=== PATIENT | female | born 1995 | race Caucasian/White ===

== ENCOUNTER 2016-07-02 14:26 | Emergency (ER) | payer BC ==
[2016-07-02 15:21] VITALS: BP 121/94
--- NOTE | 2016-07-02 16:07 | UC ---
Throat Pain/Nasal Cj HPI - HPI Summary HPI Summary: 21 yo female with sore throat x 1-2 days recent exposure to strep no f/c some myalgias no n/v/d - History of Current Complaint Chief Complaint: UCRespiratory Stated Complaint: THROAT Time Seen by Provider: 07/02/16 15:59 Hx Obtained From: Patient Hx Last Menstrual Period: Early May 2016 Onset/Duration: Sudden Onset, Lasting Days Severity: Mild Pain Intensity: 3 Pain Scale Used: 0-10 Numeric Cough: None Associated Signs & Symptoms: Positive: Negative - Allergies/Home Medications Allergies/Adverse Reactions: Allergies Allergy/AdvReac Type Severity Reaction Status Date / Time Amoxicillin Allergy Rash Verified 01/28/13 12:42 Erythromycin Allergy Unknown Verified 07/02/16 14:57 Reaction Details Penicillins Allergy Rash Verified 01/28/13 12:42 erythromycin Allergy Stomach Uncoded 07/02/16 14:57 Cramps Home Medications: Home Medications Acetaminophen TAB* [Tylenol TAB*] 325 mg PO Q4H PRN 07/02/16 [History Confirmed 07/02/16] PMH/Surg Hx/FS Hx/Imm Hx Previously Healthy: Yes Endocrine History Of: Denies: Diabetes, Thyroid Disease Cardiovascular History Of: Denies: Cardiac Disorders Respiratory History Of: Denies: Asthma - Surgical History Surgical History: Yes Surgery Procedure, Year, and Place: wisdom teeth - Family History Known Family History: Positive: Hypertension - Social History Alcohol Use: Occasionally Substance Use Type: Excessive Caffeine Smoking Status (MU): Light Every Day Tobacco Smoker Review of Systems Constitutional: Negative Skin: Negative Eyes: Negative ENT: Sore Throat Respiratory: Negative Cardiovascular: Negative Gastrointestinal: Negative Genitourinary: Negative Motor: Negative Neurovascular: Negative Musculoskeletal: Negative Neurological: Negative Psychological: Negative All Other Systems Reviewed And Are Negative: Yes Physical Exam Triage Information Reviewed: Yes Appearance: Well-Appearing, No Pain Distress, Well-Nourished Vital Signs: Initial Vital Signs Temp 96.6 F 07/02/16 14:49 Pulse 61 07/02/16 14:49 Resp 18 07/02/16 14:49 BP 121/94 07/02/16 14:49 Pulse Ox 100 07/02/16 14:49 Vital Signs Reviewed: Yes Eyes: Positive: Conjunctiva Clear ENT: Positive: Hearing grossly normal, Pharyngeal erythema, TMs normal. Negative: Nasal congestion, Nasal drainage, Tonsillar swelling, Tonsillar exudate, Trismus, Muffled/hoarse voice Neck: Positive: Supple, Nontender, Enlarged Nodes @ - ant cervical Respiratory: Positive: Lungs clear, Normal breath sounds, No respiratory distress Cardiovascular: Positive: RRR, No Murmur Musculoskeletal: Positive: ROM Intact, No Edema Neurological: Positive: Alert Psychological Exam: Normal Skin Exam: Normal Throat Pain/Nasal Course/Dx - Differential Dx/Diagnosis Provider Diagnoses: acute pharygitis Discharge - Discharge Plan Condition: Stable Disposition: HOME Prescriptions: Azithromycin TAB* [Zithromax TAB*] 250 mg PO DAILY #6 tab Patient Education Materials: Pharyngitis (ED) Referrals: Arianna Carvajal, [employer] [Primary Care Provider] - 4 Days (if not better)
== END 2016-07-02 16:13 | disposition home or self-care (01) ==
LOC: UCCORT 14:26
DX: J02.9 Acute pharyngitis, unspecified (principal); F17.210 Nicotine dependence, cigarettes, uncomplicated; Z88.0 Allergy status to penicillin; Z88.1 Allergy status to other antibiotic agents
CPT/HCPCS: 81025; 87651; 99202; G0463

== ENCOUNTER 2016-08-20 11:36 | Emergency (ER) | payer BC ==
[2016-08-20] MEDS ORDERED: Ibuprofen TAB* 600 MG PO ONE (11:53)
--- NOTE | 2016-08-20 12:02 | UC ---
Throat Pain/Nasal Cj HPI - HPI Summary HPI Summary: Had mild low back pain for several days, then abrupt onset of fever, ST, chills , and body aches last night. Reports strep every 3 months or so, and this is what it feels like to her. Took ibuprofen last night and at 5am with some effect. Denies rash or vomiting. - History of Current Complaint Stated Complaint: BODY ACHES,SORE THROAT,FEVER Time Seen by Provider: 08/20/16 11:47 Hx Obtained From: Patient Hx Last Menstrual Period: 12/28/12 ?: No Onset/Duration: Gradual Onset, Lasting Days Severity: Mild Cough: None Associated Signs & Symptoms: Positive: Fever. Negative: Sinus Discomfort, Nasal Discharge - Allergies/Home Medications Allergies/Adverse Reactions: Allergies Allergy/AdvReac Type Severity Reaction Status Date / Time Amoxicillin Allergy Rash Verified 01/28/13 12:42 Erythromycin Allergy Unknown Verified 07/02/16 14:57 Reaction Details Penicillins Allergy Rash Verified 01/28/13 12:42 erythromycin Allergy Stomach Uncoded 07/02/16 14:57 Cramps PMH/Surg Hx/FS Hx/Imm Hx Endocrine History Of: Denies: Diabetes, Thyroid Disease Cardiovascular History Of: Denies: Cardiac Disorders Respiratory History Of: Denies: Asthma - Surgical History Surgical History: None Surgery Procedure, Year, and Place: wisdom teeth - Family History Known Family History: Positive: Hypertension - Social History Occupation: Student Lives: Alone Alcohol Use: Occasionally Substance Use Type: None Smoking Status (MU): Light Every Day Tobacco Smoker Review of Systems Constitutional: Fever - subj, Chills, Fatigue Skin: Negative Eyes: Negative ENT: Sore Throat Respiratory: Negative Cardiovascular: Negative Gastrointestinal: Negative Genitourinary: Negative Motor: Negative Neurovascular: Negative Musculoskeletal: Myalgia Neurological: Negative Psychological: Negative All Other Systems Reviewed And Are Negative: Yes Physical Exam Triage Information Reviewed: Yes Appearance: Well-Appearing, Pain Distress - mild Vital Signs Reviewed: Yes Eye Exam: Normal Eyes: Positive: Conjunctiva Clear ENT: Positive: Pharyngeal erythema, TMs normal, Tonsillar swelling, Tonsillar exudate. Negative: Nasal congestion, Nasal drainage Dental Exam: Normal Neck exam: Normal Neck: Positive: Supple, Nontender, No Lymphadenopathy Respiratory Exam: Normal Respiratory: Positive: Chest non-tender, Lungs clear, Normal breath sounds, No respiratory distress, No accessory muscle use Cardiovascular: Positive: No Murmur, Tachycardia - high 90s on exam Musculoskeletal Exam: Normal Neurological Exam: Normal Neurological: Positive: Alert Psychological Exam: Normal Skin Exam: Normal Throat Pain/Nasal Course/Dx - Course Course Of Treatment: discussed strep swab versus clinical dx, explained that I would likely treat her with abx regardless. Pt would like to skip RST today, understands she will need another visit if she does not improve as expected. - Differential Dx/Diagnosis Provider Diagnoses: tonsillitis Discharge - Discharge Plan Condition: Stable Disposition: HOME Prescriptions: Clindamycin Cap(NF) [Cleocin 300 mg Cap(NF)] 300 mg PO TID #30 cap Patient Education Materials: Tonsillitis (ED) Referrals: Arianna Carvajal NP [Primary Care Provider] - Additional Instructions: If you do not have clear and marked improvement within a few days, please see your primary care provider for follow-up. You have elected to forego a strep test today because your clinical presentation is strongly suggestive. If you do not improve, or if you improve and then worsen, you will likely need further testing.
[2016-08-20 12:10] VITALS: BP 122/74
== END 2016-08-20 12:23 | disposition home or self-care (01) ==
LOC: UCCORT 11:36
DX: J03.90 Acute tonsillitis, unspecified (principal); Z88.1 Allergy status to other antibiotic agents; Z88.0 Allergy status to penicillin; F17.210 Nicotine dependence, cigarettes, uncomplicated
CPT/HCPCS: 99212; A9270-GY; G0463

== ENCOUNTER 2016-10-12 07:45 | Day surgery (SDC) | payer BC ==
[~2016-10-12 07:45] MED LIST: Dexamethasone IV* 4 MG/ML 1 ML (4 MG) IV SLOW PU ONE; Famotidine IV* 10 MG/ML 2 ML (20 mg) IV ONE
[2016-10-12 07:56] LABS: Manual Entry Verification MR; UR Preg Internal Control QC Line Present
[2016-10-12] MEDS ORDERED: Famotidine IV* 10 MG/ML 2 ML (20 mg) ONE (08:05)
[2016-10-12] MEDS ORDERED: Buffered Lidocaine 1% SYRIN* 5 ML/SYR SYRINGE ONE (08:05)
[2016-10-12] MEDS ORDERED: Dexamethasone IV* 4 MG/ML 1 ML (4 MG) ONE (08:05)
[2016-10-12] MEDS ORDERED: ROPIVACAINE 5 MG/ML 30 ML BTL (0.5%) ONE (08:13)
[2016-10-12] MEDS ORDERED: Succinylcholine* 20 MG/ML 10 ML VIAL ONE (08:16)
[2016-10-12] MEDS ORDERED: Midazolam* 1 MG/ML 2 ML VIAL (2 MG) ONE (08:16)
[2016-10-12] MEDS ORDERED: Propofol* 10 MG/ML 20 ML BTL IV PUSH ONE (08:16)
[2016-10-12] MEDS ORDERED: Lidocaine 2% PF * 5 ML VIAL ONE (08:16)
[2016-10-12] MEDS ORDERED: fentaNYL* 50 MCG/ML 2 ML VIAL (100 MCG VIAL) ONE ×2 (08:17→09:42)
[2016-10-12] MEDS ORDERED: HYDROcodone/ACETAMIN 5-325 MG* 1 TAB PO PRN (08:38)
[2016-10-12] MEDS ORDERED: PROCHLORPERAZINE INJ 5 MG/ML 2 ML VIAL IV PRN (08:38)
[2016-10-12] MEDS ORDERED: oxyCODONE/Acetamin 5/325 MG* TAB PO PRN (08:38)
[2016-10-12] MEDS ORDERED: Ondansetron INJ* 2 MG/ML VIAL ONE (09:08)
[2016-10-12] MEDS: fentaNYL* 50 MCG/ML 2 ML VIAL (100 MCG VIAL) IV PRN ×2 (09:45→09:54)
[2016-10-12] MEDS ORDERED: HYDROcodone/ACETAMIN 5-325 MG* 1 TAB ONE (09:50)
[2016-10-12 10:31] VITALS: BP 120/75
--- NOTE | 2016-10-13 01:16 | OP ---
DATE OF OPERATION: 10/12/16 - [facility] DATE OF : [birth year] SURGEON: Roberto Moore MD ANESTHESIOLOGIST: Venice Reardon MD ANESTHESIA: General endotracheal anesthesia. PRE-OP DIAGNOSIS: Chronic current tonsillitis. POST-OP DIAGNOSIS: Chronic current tonsillitis. OPERATIVE PROCEDURE: Tonsillectomy. COMPLICATIONS: None. DISPOSITION: Good. SPECIMEN: Left and right tonsils. BLOOD LOSS: Minimal. DESCRIPTION OF PROCEDURE: The patient was taken to the operating room and placed in the supine position on the operating table, general anesthesia induced , and she was orotracheally intubated and turned and draped for the surgery. Serge-Esdras mouth gag was inserted, traction was applied, and suspended from the barboza stand. The adenoid bed was palpated and there was no significant adenoid tissue. Right tonsil was grasped and manual traction applied. Using Bovie cautery, it was dissected along its capsule removing it from the underlying pharyngeal musculature. The left tonsil was grasped, manual traction applied. Again using Bovie cautery, it was dissected along its capsule removing it from the underlying pharyngeal musculature. Hemostasis was ensured in the both tonsillar fossae using the suction cautery. Orogastric tube inserted into the stomach, stomach contents suctioned. Serge-Esdras mouth gag was released and removed. The patient tolerated the procedure well. No complication. She was transferred to recovery room in stable condition. [id number]/CPS #: [id number] MTDD
== END 2016-10-12 10:49 | disposition home or self-care (01) ==
LOC: OR 07:45
PROVIDERS: ATTEND Otolaryngology
DX: J03.01 Acute recurrent streptococcal tonsillitis (principal); F17.210 Nicotine dependence, cigarettes, uncomplicated
CPT/HCPCS: 81025; 88304; J0330; J1100; J2250; J2405; J2704; J2795; J3010

== ENCOUNTER 2016-11-23 11:28 | Emergency (ER) | payer BC ==
[2016-11-23 11:54] VITALS: BP 104/58
--- NOTE | 2016-11-23 13:52 | UC ---
Complaint Female HPI - HPI Summary HPI Summary: 2 DAYS OF LOWER ABDOMINAL CRAMPING AND BURNING WITH URINATION. ALSO HAS FREQUENCY AND MILD BACK PAIN. NO FEVER OR NAUSEA. CURRENTLY ON MENSES. - History Of Current Complaint Chief Complaint: UCGU Stated Complaint: UTI SYMPTOMS Time Seen by Provider: 11/23/16 13:09 Hx Obtained From: Patient Hx Last Menstrual Period: now Onset/Duration: Gradual Onset, Lasting Days, Still Present Timing: Constant Severity Initially: Moderate Severity Currently: Moderate Pain Intensity: 7 Pain Scale Used: 0-10 Numeric Character: Burning Aggravating Factor(s): Urination Alleviating Factor(s): Nothing Associated Signs And Symptoms: Positive: Back Pain. Negative: Fever, Vaginal Discharge, Nausea, Vomiting(# Of Episodes =), Genital Swelling, Genital Blisters - Allergies/Home Medications Allergies/Adverse Reactions: Allergies Allergy/AdvReac Type Severity Reaction Status Date / Time Amoxicillin Allergy Rash Verified 11/23/16 11:53 Erythromycin Allergy Rash Verified 11/23/16 11:53 Penicillins Allergy Rash Verified 11/23/16 11:53 PMH/Surg Hx/FS Hx/Imm Hx Previously Healthy: Yes - Surgical History Surgical History: Yes Surgery Procedure, Year, and Place: wisdom teeth. Tonsil 10/10 - Family History Known Family History: Positive: Hypertension - Social History Alcohol Use: Occasionally Alcohol Amount: 10 beers q2-3 weeks Substance Use Type: Marijuana Substance Use Comment - Amount & Last Used: recreational Smoking Status (MU): Light Every Day Tobacco Smoker Amount Used/How Often: 1-2 cigs per day Length of Time of Smoking/Using Tobacco: started at age 17 Have You Smoked in the Last Year: No Review of Systems Constitutional: Negative Respiratory: Negative Cardiovascular: Negative Gastrointestinal: Abdominal Pain Genitourinary: Dysuria, Frequency All Other Systems Reviewed And Are Negative: Yes Physical Exam Triage Information Reviewed: Yes Appearance: Well-Appearing, No Pain Distress, Well-Nourished Vital Signs: Initial Vital Signs Temp 98.2 F 11/23/16 11:50 Pulse 70 11/23/16 11:50 Resp 16 11/23/16 11:50 BP 104/58 11/23/16 11:50 Pulse Ox 98 11/23/16 11:50 Vital Signs Reviewed: Yes Eyes: Positive: Conjunctiva Clear ENT: Positive: Hearing grossly normal Neck: Positive: Supple Respiratory: Positive: No respiratory distress, No accessory muscle use Cardiovascular: Positive: Pulses Normal Abdomen Description: Positive: Soft, Other: - SUPRAPUBIC TTP. Negative: CVA Tenderness (R), CVA Tenderness (L), Distended, Guarding Musculoskeletal: Positive: No Edema Neurological: Positive: Alert Psychological: Positive: Age Appropriate Behavior Skin: Negative: rashes Diagnostics - Laboratory Diagnostic Studies Completed/Ordered: URINE DIP SP. GR. 1.020, 1+LEUKS, 2+ BLOOD (ON MENSES), 1+ PROTEIN Complaint Female Dx - Differential Dx/Diagnosis Provider Diagnoses: UTI Discharge - Discharge Plan Condition: Stable Disposition: HOME Prescriptions: Phenazopyridine TAB* [Pyridium TAB*] 200 mg PO TID #6 tab Sulfamethox/Trimethoprim DS* [Bactrim DS 800/160 TAB*] 1 tab PO BID #6 tab Patient Education Materials: Urinary Tract Infection in Women (ED) Referrals: Arianna Carvajal, [employer] [Primary Care Provider] - If Needed
== END 2016-11-23 13:47 | disposition home or self-care (01) ==
LOC: UCCORT 11:28
DX: N39.0 Urinary tract infection, site not specified (principal); F17.200 Nicotine dependence, unspecified, uncomplicated
CPT/HCPCS: 81003; 87077; 87086; 99212; G0463

== ENCOUNTER 2018-04-23 10:15 | Emergency (ER) | payer BC ==
[2018-04-23 10:58] VITALS: BP 111/64
--- NOTE | 2018-04-23 11:19 | UC ---
Abdominal Pain Female HPI - HPI Summary HPI Summary: Pt presents with 6 days of vaginal discharge with odor, no itching, mild low back pain, mild lower abd cramping x 2 days and dysuria x 2 days. No hematuria, frequency or urgency. Pt removed Nueva ring approx 1 week ago - requesting test. No nausea, vomiting. No fever, chills. h/o BV- states feels similar. No h.o STD. No medications taken or treatment Pt's medication reviewed this visit - History of Current Complaint Chief Complaint: UCGU Stated Complaint: URINARY Time Seen by Provider: 04/23/18 10:59 Hx Obtained From: Patient Hx Last Menstrual Period: 03/24/18 Pain Intensity: 5 Allergies/Adverse Reactions: Allergies Allergy/AdvReac Type Severity Reaction Status Date / Time amoxicillin Allergy Unknown Rash Verified 04/23/18 10:50 erythromycin base Allergy Unknown Rash Verified 04/23/18 10:50 Penicillins Allergy Unknown Rash Verified 04/23/18 10:50 PMH/Surg Hx/FS Hx/Imm Hx Previously Healthy: Yes - Surgical History Surgical History: Yes Surgery Procedure, Year, and Place: wisdom teeth. Tonsil 10/10 - Family History Known Family History: Positive: Hypertension - Social History Alcohol Use: Rare Alcohol Amount: 10 beers q2-3 weeks Substance Use Type: Marijuana Substance Use Comment - Amount & Last Used: OCCASIONAL Smoking Status (MU): Former Smoker Amount Used/How Often: 1-2 cigs per day Length of Time of Smoking/Using Tobacco: started at age 17 Have You Smoked in the Last Year: No When Did the Patient Quit Smoking/Using Tobacco: 07/14 Review of Systems All Other Systems Reviewed And Are Negative: Yes Gastrointestinal: Positive: Abdominal Pain - cramping Genitourinary: Positive: Dysuria, Vaginal/Penile Discharge Physical Exam - Summary Physical Exam Summary: Vital Signs Reviewed: Yes A+Ox3, no distress Eyes: Conjunctiva Clear, CARLOS. EOM intact and full ENT: Hearing grossly normal TM x 2 clear, mmoist, uvula midline, no exudate, no erythema Neck: Positive: Supple Respiratory: Positive: No respiratory distress, No accessory muscle use + CTA throughout no w/r Cardiovascular: RRR nl s1, s2 no m/r CBT <2 sec abd soft + BS nt/nd no guarding, no distension, no CVA : RN Im chaparone: no lesions, no odor, thin white d/c in vault. no bleeding no CMT - endocervical samples taken Musculoskeletal Exam: CARVER x 4 without difficulty Strength Intact, ROM Intact Neurological: Positive: Alert, + sensation throughout Psychological: Positive: Normal Response To Family Skin: Positive: no rash, no ecchymosis Triage Information Reviewed: Yes Vital Signs: Initial Vital Signs Temp 98.3 F 04/23/18 10:51 Pulse 64 04/23/18 10:51 Resp 14 04/23/18 10:51 BP 111/64 04/23/18 10:51 Pulse Ox 100 04/23/18 10:51 Abd Pain Female Course/Dx - Course Course Of Treatment: Pt presents with vaginal discharge, odor and dysuria. Pt also reports abd cramping and back pain. VSS. exam significant for white, thin vaginal discharge. abd exam non concerning. urinalysis and test reviewd. Will treat for BV given exam. pt aware cx pending. recommended alternate BCP since removed ring. pt comfortable and in agreement with plan - Differential Dx/Diagnosis Provider Diagnosis: Bacterial vaginosis, Vaginitis Discharge - Sign-Out/Discharge Documenting (check all that apply): Patient Departure All imaging exams completed and their final reports reviewed: No Studies - Discharge Plan Condition: Stable Disposition: HOME Prescriptions: metroNIDAZOLE [Flagyl] 500 mg PO BID #14 tablet Patient Education Materials: Bacterial Vaginosis (ED) Referrals: Arianna Carvajal NP [Primary Care Provider] - Additional Instructions: You are being treated for bacterial vaginosis - this is a vaginal infection that is NOT sexually transmitted. Take medication as prescribed. Do NOT drink alcohol for 48 hours before starting and 48 hours following completion of this medication Your samples have been sent for additional testing - if you need a change in treatment, you will be contacted by a care fast food team member. this may take 2-3 days It is recommended you contact your methodologist to discuss control option Contact your doctor or return with questions or concerns - Billing Disposition and Condition Condition: STABLE Disposition: Home
== END 2018-04-23 11:48 | disposition home or self-care (01) ==
LOC: UCCORT 10:15
DX: N76.0 Acute vaginitis (principal); Z88.1 Allergy status to other antibiotic agents; Z88.0 Allergy status to penicillin; Z87.891 Personal history of nicotine dependence
CPT/HCPCS: 81003; 84702; 87086; 87480; 87491; 87510; 87591; 99212; G0463

== ENCOUNTER 2018-05-01 08:21 | Emergency (ER) | payer BC ==
[2018-05-01] MEDS ORDERED: NS 0.9% 1000 ML* 1,000 ML IV ONE (09:01)
[2018-05-01] MEDS ORDERED: Ondansetron INJ* 2 MG/ML VIAL IV ONE (09:01)
--- NOTE | 2018-05-01 09:34 | ED ---
Complex/Multi-Sys Presentation - HPI Summary HPI Summary: 23-year-old female presents with multiple symptoms for the past couple days. She admits to nausea vomiting diarrhea. She also admits to abdominal. She states feels flushed. She states feels anxious. She is occasional shortness of breath. No chest pain. No cough. No sore throat. She denies any urinary symptoms. She denies any flank pain. She states she recently is being treated for BV. She denies any abnormal vaginal discharge. She states this after she started Flagyl started about symptoms. She also been started on hydroxyzine she is help with everything. She admits to loss of appetite. she states feels dehydrated and weak. she denies any fever. - History Of Current Complaint Chief Complaint: EDGeneral Time Seen by Provider: 05/01/18 08:33 - Allergies/Home Medications Allergies/Adverse Reactions: Allergies Allergy/AdvReac Type Severity Reaction Status Date / Time amoxicillin Allergy Unknown Rash Verified 05/01/18 08:30 erythromycin base Allergy Unknown Rash Verified 05/01/18 08:30 Penicillins Allergy Unknown Rash Verified 05/01/18 08:30 PMH/Surg Hx/FS Hx/Imm Hx Endocrine/Hematology History: Denies: Hx Diabetes, Hx Thyroid Disease Cardiovascular History: Denies: Other Cardiovascular Problems/Disorders Respiratory History: Denies: Hx Asthma GI History: Reports: Hx Irritable Bowel Denies: Other GI Disorders Sensory History: Reports: Hx Contacts or Glasses - glasses Denies: Hx Hearing Aid Opthamlomology History: Reports: Hx Contacts or Glasses - glasses Psychiatric History: Reports: Hx Anxiety - no meds, Hx Depression - no meds - Surgical History Surgery Procedure, Year, and Place: wisdom teeth. Tonsil 10/10 Hx Anesthesia Reactions: Yes - woke up during colonoscopy and wisdom teeth, very combative Infectious Disease History: No Infectious Disease History: Denies: Traveled Outside the [place] in Last 30 Days - Family History Known Family History: Positive: Hypertension - Social History Alcohol Use: Rare Alcohol Amount: 10 beers q2-3 weeks Substance Use Type: Reports: Marijuana Substance Use Comment - Amount & Last Used: OCCASIONAL Smoking Status (MU): Former Smoker Amount Used/How Often: 1-2 cigs per day Length of Time of Smoking/Using Tobacco: started at age 17 Have You Smoked in the Last Year: No Review of Systems Negative: Fever Negative: Cough Positive: Abdominal Pain, Vomiting, Diarrhea, Nausea Positive: Myalgia Positive: Weakness All Other Systems Reviewed And Are Negative: Yes Physical Exam Triage Information Reviewed: Yes Vital Signs On Initial Exam: Initial Vitals Temp Pulse Resp BP Pulse Ox 98.9 F 72 19 140/75 97 05/01/18 08:24 18 08:24 18 08:24 05/01/18 08:24 05/01/18 08:24 Vital Signs Reviewed: Yes Appearance: Positive: Well-Appearing Skin: Positive: Warm, Dry Head/Face: Positive: Normal Head/Face Inspection Eyes: Positive: Normal, Conjunctiva Clear ENT: Positive: Pharynx normal Respiratory/Lung Sounds: Positive: Clear to Auscultation, Breath Sounds Present Cardiovascular: Positive: Normal, RRR Musculoskeletal: Positive: Normal Neurological: Positive: Normal Psychiatric: Positive: Normal Diagnostics - Vital Signs Vital Signs Temp Pulse Resp BP Pulse Ox 05/01/18 08:45 66 98 05/01/18 08:24 98.9 F 72 19 140/75 97 - Laboratory Result Diagrams: 05/01/18 09:24 05/01/18 09:24 Lab Statement: Any lab studies that have been ordered have been reviewed, and results considered in the medical decision making process. - EKG No standard instances Cardiac Rate: NL EKG Rhythm: Sinus Rhythm Summary of EKG Findings: sinus arrhythmia Complex Multi-Symp Course/Dx Course Of Treatment: 23-year-old female presents with multiple symptoms for the past couple days. She admits to nausea vomiting diarrhea. She also admits to abdominal. She states feels flushed. She states feels anxious. She is occasional shortness of breath. No chest pain. No cough. No sore throat. She denies any urinary symptoms. She denies any flank pain. She states she recently is being treated for BV. She denies any abnormal vaginal discharge. She states this after she started Flagyl started about symptoms. She also been started on hydroxyzine she is help with everything. She admits to loss of appetite. she states feels dehydrated and weak. she denies any fever. On exam normal physical exam. Labs within normal limits. Urine is likely contaminant. Gave fluids and feeling better. Explained could be a viral illness versus anxiety. Could also be reaction to Flagyl. Patient has one day left of Flagyl. told to finish antibiotics. declined pelvic. Gave Zofran for nausea. Patient understand and agree with plan. - Diagnoses Differential Diagnoses/HQI/PQRI: Metabolic Abnormality, Sepsis, Urinary Tract Infection Provider Diagnoses: Nausea vomiting and diarrhea, Weakness, Anxiety Discharge - Sign-Out/Discharge Documenting (check all that apply): Patient Departure - Discharge Plan Condition: Good Disposition: HOME Prescriptions: Ondansetron ODT TAB* [Zofran 4 MG Odt TAB*] 4 mg PO Q6H PRN #12 tab.odt PRN Reason: Nausea Patient Education Materials: Acute Nausea and Vomiting (ED) Forms: *School Release Referrals: Jacob ROBERTS,David Lucio [Primary Care Provider] - Additional Instructions: Can take Zofran every 6 hours as needed for nausea Drink small amounts of fluid as tolerated When able to eat follow BRAT diet: Bananas, rice, applesauce, toast Take ibuprofen or Tylenol for pain as needed every 6 hours Follow up with primary within 5 days Return to ED if develop any new or worsening symptoms - Billing Disposition and Condition Condition: GOOD Disposition: Home
[2018-05-01 09:35] LABS: ABS Basophils 0 10^3/ul (0-0.2); ABS Eosinophils 0.1 10^3/ul (0-0.6); ABS Monocytes 0.4 10^3/ul (0-0.8); ABS Neutrophils 5.2 10^3/ul (1.5-7.7); ABS Nucleated RBC 0 10^3/ul; Eosinophil % 0.9 %; Hematocrit 42 % (35-47); Hemoglobin 14.2 g/dl (12.0-16.0); Mean Corpuscular HGB Conc 34 g/dl (31-36); Mean Corpuscular Hemoglobin 29 pg (27-31); Mean Corpuscular Volume 87 fL (80-97); Mean Platelet Volume 7.9 fL (7.4-10.4); Nucleated Red Blood Cells % 0.1; Platelet Count 301 10^3/ul (150-450); Red Blood Count 4.89 10^6/ul (4.00-5.40); Red Cell Distribution Width 12 % (10.5-15); White Blood Count 6.8 10^3/ul (3.5-10.8)
[2018-05-01 09:36] LABS: Urine Appearance Cloudy; Urine Blood 2+ (Negative); Urine Color Amber; Urine Ketones 2+ (Negative); Urine Protein 1+(30 mg/dL) (Negative); Urine Red Blood Cell Trace(0-2/hpf) (Absent); Urine Specific Gravity 1.029 (1.010-1.030); Urine Urobilinogen Negative (Negative); Urine White Blood Cell Absent (Absent)
[2018-05-01 09:52] LABS: EGFR Non-African American 92.1 (>60)
[2018-05-01] MEDS ORDERED: Magnesium Chloride EC TAB* 64 MG PO ONE (09:58)
[2018-05-01 10:58] VITALS: BP 119/75
== END 2018-05-01 10:57 | disposition home or self-care (01) ==
LOC: ED 08:21
DX: R11.2 Nausea with vomiting, unspecified (principal); R19.7 Diarrhea, unspecified; R53.1 Weakness; F41.9 Anxiety disorder, unspecified; Z88.0 Allergy status to penicillin; Z87.891 Personal history of nicotine dependence
CPT/HCPCS: 36415; 80053; 81003; 81015; 82550; 83605; 83735; 84443; 84484; 84702; 85025; 86140; 86308; 86618; 87086; 93005; 96361; 96374; 99282; A9270-GY; J2405